=== PATIENT | female | born 1960 | race African-American/Black ===

== ENCOUNTER 2021-03-17 08:30 | Emergency (ER) | payer MEDICAID, OTHER ==
[~2021-03-17] VITALS: Ht 172.7 cm; Wt 104.0 kg
[2021-03-17 08:33] VITALS: BP 144/95
[2021-03-17] MEDS ORDERED: SODIUM CHLORIDE 0.9% 1,000 ML IV ONE (08:45)
[2021-03-17 09:03] LABS: CLARITY URINE CLOUDY (CLEAR); COLOR URINE YELLOW (YELLOW); KETONES URINE TRACE (NEGATIVE); LEUKOCYTE ESTERASE URINE TRACE (NEGATIVE); NITRITE URINE NEGATIVE (NEGATIVE); OCCULT BLOOD URINE NEGATIVE (NEGATIVE); PROTEIN URINE 1+ (NEGATIVE); SPECIFIC GRAVITY URINE 1.017 (1.005-1.030)
[2021-03-17 10:25] LABS: BASOPHILS % 0.3 % (0.0-2.0); EOSINOPHILS % 0.1 % (0.0-5.0); HEMATOCRIT. 39.2 % (36.0-48.0); LYMPHOCYTES % 21.1 % (20.0-50.0); MEAN CORPUSCULAR HEMOGLOBIN 25.7 pg (28.0-32.0); MEAN CORPUSCULAR VOLUME 77.6 fL (81.0-99.0); MEAN PLATELET VOLUME 8.3 fl (7.4-10.4); MONOCYTES % 6.1 % (2.0-8.0); NEUTROPHILS % 72.4 % (40.0-76.0); PLATELET 261 x1000/uL (130-400); RED BLOOD CELL COUNT 5.04 mill/uL (4.2-5.4); RED CELL DISTRIBUTION WIDTH 14.4 % (11.6-14.6)
[2021-03-17 10:28] LABS: CHLORIDE 103 mEq/L (98-107)
[2021-03-17] MEDS ORDERED: TOPUD PO (11:22)
[2021-03-17] MEDS ORDERED: CEFP200T13 MT (11:22)
[2021-03-17] MEDS ORDERED: IBUP-2028 MT (11:23)
== END 2021-03-17 13:00 | disposition home or self-care (01) ==
LOC: ER 08:30
DX: N39.0 Urinary tract infection, site not specified (principal)
CPT/HCPCS: 36415; 74176; 80053; 81003; 83690; 85025; 87077; 87086; 87186; 99284; J7030; Z7610

== ENCOUNTER 2022-03-07 07:16 | Emergency (ER) | payer MEDICAID ==
[~2022-03-07] VITALS: Ht 172.7 cm; Wt 89.0 kg
[~2022-03-07 07:16] MED LIST: CEFP200T13 MT; IBUP-2028 MT; TOPUD PO
[2022-03-07 07:41] VITALS: BP 172/98
== END 2022-03-07 15:09 | disposition left against medical advice (07) ==
LOC: ER 07:16
DX: Z13.9 Encounter for screening, unspecified (principal); Z53.21 Procedure and treatment not carried out due to patient leaving prior to being seen by health care provider